=== PATIENT | female | born 1970 | race Hispanic/Latino ===

== ENCOUNTER 2021-11-13 10:06 | Outpatient (AMBR) | payer MEDICAID, SELFPAY ==
--- NOTE | 2021-10-28 14:38 | PT.OIERPT ---
PT OP Initial Eval Patient Information Visit Reasons: right hip sprain Medical Diagnosis: [id number] Treatment Dx #1: Right Hip Pain Treatment Dx #2: Right Hip Mobility Deficits Start of Care: 10/28/21 Initial Assessment Subjective Pt is a 51 y/o female c/o chronic right hip pain (10) atraumatic. Pt's most recet MRI found partial tear of the glute medius/minimus, trochanter bursitis, and degenerative changes without the labrum. Pt has limitation with walking, standing, chores, getting in/out of bed, self care, cooking, cleaning, recreational activities, and performing work duties. Objective Right Hip AROM Flexion: 90 deg with pain Abduction: 40 deg with pain Extension: 15 deg IR and ER: WFL except IR with pain towards end range Right Hip MMTs Glute Med: 3-/5 Glute Max: 3-/5 SLS: unable Assessment Pt demonstrate right hip pain consistent with MRI findings leading to decline function. Pt will attempt physical therapy if pain persist Pt will be refer back to surgeon for further consultation Short Term and [facility] Goals 1) Increase right hip AROM WFL in 6 wks to be able to perform chores 2) Increase right hip MMTs grossly to 3+/5 in 6 wks to be able to walk more than 1 hr without AD 3) Decrease hip pain to 3/10 in 6 wks to be able to stand more than 1 hr 4) Increase SLS to 10 sec in 6 wks to be able to perform self care activities 5) Indep with HEP Treatment Plan 1) Manual Therapy 2) Therapeutic Activities 3) Therapeutic Exercises 4) Modalities (ice, heat, estim) 5) Balance Training Frequency and Duration 2 x wk for 6 wks Certification Dates: 10/28/21 to 01/26/22 Office Procedures PT Treatments PT Date of Service: 10/28/21 OP PT Eval Mod Complex 30 minutes: Yes
--- NOTE | 2021-10-30 15:02 | PT.ODAYNRPT ---
PT Outpatient Daily Note Date of Service: 10/30/21 OP Daily Note Visit Reasons: right hip sprain Outpatient Physical Therapy Treatment Date: 10/30/21 Subjective: Pt's hip is the same and continues to have trouble walking for a long time. Objective: Please see flow chart for list of ther ex performed Assessment: tolerate exercises with minimal pain; pace and difficulty with standing exercises due to increase pain Plan: Continue with PT Length of Time (minutes) of Treatment: 30 Minutes Office Procedures PT Treatments PT Date of Service: 10/28/21 OP PT Eval Mod Complex 30 minutes: Yes PT Treatments PT Date of Service: 10/30/21 Therapeutic Exercise 30 minutes: Yes
--- NOTE | 2021-11-04 15:32 | PT.ODAYNRPT ---
PT Outpatient Daily Note Date of Service: 11/04/21 OP Daily Note Visit Reasons: right hip sprain Outpatient Physical Therapy Treatment Date: 11/04/21 Subjective: Pt's hip is about the same no change since last appt. Pt will be seeing MD on 11/12 Objective: Please see flow chart for list of ther ex performed Assessment: tolerate exercises with minimal pain; Pt unable to get on sci-fit today due to fear of increasing hip pain Plan: Continue with PT Length of Time (minutes) of Treatment: 30 Minutes Office Procedures PT Treatments PT Date of Service: 10/28/21 OP PT Eval Mod Complex 30 minutes: Yes PT Treatments PT Date of Service: 10/30/21 Therapeutic Exercise 30 minutes: Yes PT Treatments PT Date of Service: 11/04/21 Therapeutic Exercise 30 minutes: Yes
--- NOTE | 2021-11-10 16:48 | PT.ODAYNRPT ---
PT Outpatient Daily Note Date of Service: 11/10/2021 OP Daily Note Visit Reasons: right hip sprain Outpatient Physical Therapy Treatment Date: 11/10/21 Subjective: pt states her hip hurting upon visit. she was shopping and running errands all day prior to coming to PT. Objective: see flow sheet. Assessment: pt attempted the bike in which she was on for 1 min and got off due to increase pain. she continued with ther ex in which they do cause pain. she was not able to march in place due to increase in pain so instead she was able to kick forward (hip flexion). she does rest in between exercises. not able to balance without hands on the rail due to instability from pain. Plan: continue POC per PT. Length of Time (minutes) of Treatment: 30 Minutes Office Procedures PT Treatments PT Date of Service: 10/28/21 OP PT Eval Mod Complex 30 minutes: Yes PT Treatments PT Date of Service: 10/30/21 Therapeutic Exercise 30 minutes: Yes PT Treatments PT Date of Service: 11/04/21 Therapeutic Exercise 30 minutes: Yes PT Treatments PT Date of Service: 11/10/21 Therapeutic Exercise 30 minutes: Yes
--- NOTE | 2021-11-13 11:47 | PT.ODAYNRPT ---
PT Outpatient Daily Note Date of Service: 11/13/2021 OP Daily Note Visit Reasons: right hip sprain Outpatient Physical Therapy Treatment Date: 11/13/21 Subjective: pt states her hip still painful. Objective: see flow sheet. Assessment: she attempted the bike for a min and stepped off due to increase in pain. she continued with other ther ex. she has to hold onto the rail for her SLS due to pain and instability. its easier for her to march than to kick straight up on her RLE due to pain. she needs cuing during her hip extension to not lean forward. Plan: continue POC per PT. Length of Time (minutes) of Treatment: 30 Minutes Office Procedures PT Treatments PT Date of Service: 10/28/21 OP PT Eval Mod Complex 30 minutes: Yes PT Treatments PT Date of Service: 10/30/21 Therapeutic Exercise 30 minutes: Yes PT Treatments PT Date of Service: 11/04/21 Therapeutic Exercise 30 minutes: Yes PT Treatments PT Date of Service: 11/13/21 Therapeutic Exercise 30 minutes: Yes PT Treatments PT Date of Service: 11/10/21 Therapeutic Exercise 30 minutes: Yes
== END 2021-11-14 23:59 | disposition home or self-care (01) ==
PROVIDERS: Visit Provider Orthopaedic Surgery
DX: M25.551 Pain in right hip (principal); G89.29 Other chronic pain; R26.2 Difficulty in walking, not elsewhere classified
CPT/HCPCS: 97110; 97162